=== PATIENT | female | born 1995 | race African-American/Black ===

== ENCOUNTER 2017-12-21 07:52 | Emergency (ER) | payer SELFPAY ==
[2017-12-21 08:22] LABS: BASOPHILS 0.1 % (0-2); EOSINOPHILS 1.2 % (0-7); HEMATOCRIT 34.1 % (36.0-48.0); HEMOGLOBIN 11.5 g/dL (12-16); IMMATURE GRANULOCYTES 0.1 % (0-5); LYMPHOCYTES 47.5 % (15-50); MCH 27.3 pg (26.0-34.0); MCHC 33.7 g/dL (31.0-37.0); MEAN PLATELET VOLUME 9.4 fL (7.4-10.4); MONOCYTES 7.8 % (2-11); NEUTROPHILS 43.3 % (40-80); PLATELET COUNT 234 10x3/uL (130-400); RBC 4.21 10x6/uL (4.00-5.40); RDW 13.4 % (11.5-14.5); WBC 6.7 10x3/uL (4.8-10.8)
[2017-12-21 08:25] LABS: HCG URINE POSITIVE (NEGATIVE)
[2017-12-21 08:26] LABS: APPEARANCE CLEAR (CLEAR); BILIRUBIN NEGATIVE (NEGATIVE); COLOR DK YELLOW (YELLOW); GLUCOSE NEGATIVE (NEGATIVE); KETONE NEGATIVE (NEGATIVE); NITRITE NEGATIVE (NEGATIVE); PROTEIN NEGATIVE (NEGATIVE); UROBILINOGEN NORMAL (NORMAL)
[2017-12-21 08:28] LABS: WHITE CELLS - URINE 0-5 /hpf (0-5)
[2017-12-21 08:29] LABS: BACTERIA FEW /hpf (NONE SEEN); MUCUS <1+ /lpf (NONE SEEN)
[2017-12-21 08:35] LABS: ALBUMIN 3.4 g/dL (3.4-5.0); ALKALINE PHOSPHATASE 62 U/L (46-116); ALT (SGPT) 66 U/L (10-68); BILIRUBIN - TOTAL 0.22 mg/dL (0.2-1.3); CALC OSMOLALITY 261 mosm/kg (275-300); CALCIUM 9.5 mg/dL (8.5-10.1); CARBON DIOXIDE 23.3 mmol/L (21.0-32.0); CHLORIDE - SERUM 98 mmol/L (98-107); CREATININE - SERUM 0.7 mg/dL (0.6-1.3); GLUCOSE 72 mg/dL (74-106); LIPASE 96 U/L (73-393); POTASSIUM - SERUM 3.2 mmol/L (3.5-5.1); PROTEIN - SERUM 7.8 g/dL (6.4-8.2); SODIUM 132 mmol/L (136-145); UREA NITROGEN 6 mg/dL (7-18); eGFR NON AFRICAN AMERICAN > 90 mL/min (90-120)
== END 2017-12-21 08:41 | disposition home or self-care (01) ==
LOC: D.ER 07:52
PROVIDERS: Family Medicine
DX: O02.81 Inappropriate change in quantitative human chorionic gonadotropin (hCG) in early pregnancy (principal)

== ENCOUNTER 2018-04-25 18:10 | Emergency (ER) | payer SELFPAY ==
[~2018-04-25] VITALS: Ht 165.1 cm; Wt 84.1 kg
[2018-04-25 18:38] VITALS: BP 104/54; Ht 165.1 cm; Wt 84.1 kg
[2018-06-23 20:17] VITALS: Ht 165.1 cm; Wt 84.1 kg
== END 2018-04-25 22:41 | disposition left against medical advice (07) ==
LOC: D.ER 18:10
DX: O26.893 Other specified pregnancy related conditions, third trimester (principal); Z3A.30 30 weeks gestation of pregnancy; H57.11 Ocular pain, right eye

== ENCOUNTER → 2018-05-14 04:26 | Outpatient (CLI) | payer MEDICAID ==
[2018-04-25 18:38] VITALS: BMI 30.8
[~2018-05-14 04:26] MED LIST: MACROBID100 MG
[2018-06-23 20:17] VITALS: BMI 34.8
== END | disposition home or self-care (01) ==
LOC: D.LDO 04:26
DX: O26.853 Spotting complicating pregnancy, third trimester (principal); Z3A.33 33 weeks gestation of pregnancy

== ENCOUNTER → 2018-06-20 08:18 | Outpatient (CLI) | payer MEDICAID ==
[2018-04-25 18:38] VITALS: BMI 30.8
[2018-06-20 09:29] LABS: APPEARANCE CLEAR (CLEAR); BILIRUBIN NEGATIVE (NEGATIVE); COLOR YELLOW (YELLOW); GLUCOSE NEGATIVE (NEGATIVE); KETONE NEGATIVE (NEGATIVE); NITRITE POSITIVE (NEGATIVE); PROTEIN 1+ mg/dL (NEGATIVE); SPECIFIC GRAVITY 1.015 (1.005-1.020); UROBILINOGEN NORMAL (NORMAL)
[2018-06-20 09:30] LABS: BACTERIA MANY /hpf (NONE SEEN); RED CELLS - URINE OCC /hpf (0-5); WHITE CELLS - URINE 25-50 /hpf (0-5)
[2018-06-20 09:31] LABS: AMORPHOUS SEDIMENT <1+ /lpf (NONE SEEN); MUCUS <1+ /lpf (NONE SEEN)
[2018-06-23 20:17] VITALS: BMI 34.8
== END | disposition home or self-care (01) ==
LOC: D.LDO 08:18
PROVIDERS: Obstetrics & Gynecology
DX: O26.893 Other specified pregnancy related conditions, third trimester (principal); Z3A.38 38 weeks gestation of pregnancy

== ENCOUNTER 2018-06-22 10:15 | Inpatient (IN) | payer MEDICAID ==
[~2018-06-22] VITALS: Ht 165.1 cm; Wt 94.8 kg
--- NOTE | ~2018-06-22 | OP ---
PATIENT NAME: LINUS WANG MEDICAL RECORD: [id number] LOCATION:[id number] ADMISSION DATE:06/23/18 SURGEON: VETO VARGAS MD DATE OF OPERATION: 06/24/2018 PREDELIVERY DIAGNOSIS: Mother at term. POSTDELIVERY DIAGNOSIS: Mother delivered at term. PROCEDURE: Vaginal delivery. SURGEON: Veto Vargas MD FINDINGS: Viable male infant in the vertex presentation, Apgars were 9 and 9, weight is still pending at the time of the dictation. Terminal meconium. No laceration. Placenta spontaneous and intact. ESTIMATED BLOOD LOSS: 300 cc. DISPOSITION: Mother recovered in the room. Infant to the nursery. TRANSINT:[id number] Voice Confirmation ID: [id number] DOCUMENT ID: [id number] VETO VARGAS MD at 1133 CC: [id number] DICTATION DATE: 06/24/18918 MAILROOM CLERK: 06/24/18 0938 DIS IN 06/24/18 [id number] [place] [id number]
[2018-06-23 20:17] VITALS: BP 118/71; Ht 165.1 cm; Wt 94.8 kg
[2018-06-23] MEDS ORDERED: MACROBID100 MG (20:17)
[2018-06-23 20:27] LABS: HEMATOCRIT 31.7 % (36.0-48.0); HEMOGLOBIN 10.4 g/dL (12-16); MCH 26.8 pg (26.0-34.0); MCHC 32.8 g/dL (31.0-37.0); MCV 81.7 fL (80.0-100.0); RBC 3.88 10x6/uL (4.00-5.40); RDW 14.5 % (11.5-14.5); WBC 8.4 10x3/uL (4.8-10.8)
[2018-06-23 20:46] LABS: APPEARANCE HAZY (CLEAR); BILIRUBIN NEGATIVE (NEGATIVE); COLOR YELLOW (YELLOW); GLUCOSE NEGATIVE (NEGATIVE); KETONE NEGATIVE (NEGATIVE); NITRITE NEGATIVE (NEGATIVE); PROTEIN NEGATIVE (NEGATIVE); UROBILINOGEN NORMAL (NORMAL)
[2018-06-23 20:48] LABS: BACTERIA MANY /hpf (NONE SEEN); RED CELLS - URINE 0-5 /hpf (0-5)
[2018-06-23 20:49] LABS: UDS - AMPHET NEGATIVE QUAL (NEGATIVE); UDS - BARB NEGATIVE QUAL (NEGATIVE); UDS - BENZO NEGATIVE QUAL (NEGATIVE); UDS - COCAINE NEGATIVE QUAL (NEGATIVE); UDS - OPIATE NEGATIVE QUAL (NEGATIVE); UDS - PCP NEGATIVE QUAL (NEGATIVE); UDS - THC NEGATIVE QUAL (NEGATIVE)
[2018-06-24 20:25] VITALS: BP 124/66
[2018-06-25 07:53] LABS: RAPID PLASMA REAGIN Non Reactive (Non Reactive)
== END 2018-06-24 21:00 | disposition home or self-care (01) | DRG 774 ==
LOC: D.LD 10:15 → D.SDCHOLD 06-24 08:57 → D.LD 06-24 21:00
PROVIDERS: Obstetrics & Gynecology
PROC: 10E0XZZ Delivery of Products of Conception, External Approach (ICD-10-PCS; principal; 2018-06-24)
DX: O75.3 Other infection during labor (principal); Z3A.39 39 weeks gestation of pregnancy; Z37.0 Single live birth; O77.0 Labor and delivery complicated by meconium in amniotic fluid; O76 Abnormality in fetal heart rate and rhythm complicating labor and delivery